=== PATIENT | female | born 1950 | race Caucasian/White ===

== ENCOUNTER → 2018-10-09 | Outpatient (CLI) | payer MEDICARE ==
[2018-10-09] VITALS (21 sets, daily range): BP systolic 123–172; BP diastolic 62–90
== END | disposition home or self-care (01) ==
LOC: CARD DIAG 11:39
PROVIDERS: ATTEND Internal Medicine Cardiovascular Disease
DX: R42 Dizziness and giddiness (principal); I48.91 Unspecified atrial fibrillation
CPT/HCPCS: 93660